=== PATIENT | male | born 1970 | race Caucasian/White ===

== ENCOUNTER 2021-06-24 20:50 | Observation (INO) | payer OTHER ==
[~2021-06-24] VITALS: Ht 175.3 cm; Wt 83.9 kg
[2021-06-24 20:58] VITALS: BP 109/82
[2021-06-24 21:35] LABS: ABSOLUTE NEUTROPHILS 6.1 thou/uL (1.4-8.2); BASOPHILS 0.6 % (0.0-2.0); EOSINOPHILS 0.8 % (0.0-3.0); HEMATOCRIT 43.3 % (42.0-52.0); HEMOGLOBIN 14.9 gm/dL (14.0-18.0); LYMPHOCYTES 19.9 % (24.0-44.0); MCH 30.1 pg (26.0-34.0); MCHC 34.4 g/dL (28.0-37.0); MCV 87.4 fL (80.0-100.0); MONOCYTES 12.7 % (1.0-8.0); PLATELET COUNT 231 thou/uL (150-400); RBC 4.95 mil/uL (4.50-6.00); RDW 12.9 % (10.5-14.5); WBC 9.2 thou/uL (4.0-11.0)
[2021-06-24 21:36] LABS: URINE BILIRUBIN NEGATIVE (Negative); URINE BLOOD NEGATIVE (Negative); URINE CLARITY CLEAR; URINE COLOR YELLOW; URINE GLUCOSE-RANDOM* NEGATIVE (Negative); URINE KETONES NEGATIVE (Negative); URINE LEUKOCYTES-REFLEX NEGATIVE (Negative); URINE NITRITE-REFLEX NEGATIVE (Negative); URINE PROTEIN (DIPSTICK) NEGATIVE (Negative); URINE SPECIFIC GRAVITY 1.025 (1.005-1.035); URINE UROBILINOGEN 0.2 E.U./dl (0.2-1.0)
[2021-06-24 21:45] LABS: CALCIUM 8.7 mg/dL (8.5-10.1); CREATININE 0.8 mg/dL (0.7-1.3); POTASSIUM 3.8 mmol/L (3.5-5.1)
[2021-06-24 21:52] LABS: ALBUMIN 3.4 g/dL (3.4-5.0); TOTAL BILIRUBIN 0.6 mg/dL (0.2-1.0); TOTAL PROTEIN 7.4 g/dL (6.4-8.2)
--- NOTE | 2021-06-25 02:11 | NUR ---
PATIENT IS ADVISED TO REMAIN NPO BUT IS PROVIDED WITH ORAL CARE SUPPLIES LEFT AT BEDSIDE WITH GOOD EFFECT PAIN IS INTERMITTENT, COLICKY IN NATURE AND SEVERE AT TIMES HAS HAD NO VOMITING
--- NOTE | 2021-06-25 05:41 | NUR ---
ATTEMPT TO CALL REPORT WILL ACCEPT PATIENT AT CHANGE OF SHIFT
[2021-06-25 07:38] VITALS: BP 119/69
[2021-06-25 07:52] VITALS: BP 114/72
[2021-06-25 12:00] VITALS: BP 115/66
[2021-06-25 16:16] VITALS: BP 108/67
[2021-06-25 16:25] VITALS: BP 128/78
[2021-06-25 20:22] VITALS: BP 114/83
[2021-06-26 05:16] VITALS: BP 113/79
--- NOTE | 2021-06-26 06:49 | NUR ---
A&OX4. UP AD ROGELIO. VS STABLE. RA. NO VOIDING ISSUES NOTED. PAIN TREATED PER PHYSICIAN PRN PAIN MED ORDER. NO OTHER ISSUES NOTED. WILL CONTINUE TO MONITOR.
[2021-06-26 08:15] VITALS: BP 131/87
--- NOTE | 2021-06-26 09:30 | NUR ---
CALLED DOCTOR MANLEY ABOUT PATIENT WANTING TO GO HOME. HE SAID HE WOULD BE TO THE FLOOR IN A WHILE AND HE IS NOT GOING TO LET HIM GO UNTIL AFTER HE SEE HIM AND SEE HOW HE IS DOING. TOLD HIM PATIENT WANTED TO LEAVE AMA THEN AND WANT ABX AND DOCTOR SAID HE WAS NOT GOING TO GIVE ABX IF HE LEAVES AMA NO ABX WILL BE GIVEN. DOCTOR MANLEY JUST CALLED BACK AND HE SAID THAT A DOCTOR JUST SAW HIM AND CHANGED DIET IF HE TOLERATED THAT HE WOULD SEE ABOUT GOING HOME WHEN HE GET TO FLOOR.
--- NOTE | 2021-06-26 10:10 | NUR ---
PATIENT REFUSED TO KEEP IV FLUID RUNNING AND DID NOT WANT ANY MORE PAIN MEDICAITONS.
--- NOTE | 2021-06-26 10:20 | NUR ---
PATIENT STATED THAT HE WAS NOT STAYING ANY LONGER AND WILL FIND ABX FROM SOMEWERE ELSE. PATIENT WAS GIVEN ADVICE ON WHY STAYING WOULD BE BEST BUT DID NOT WANT TO STAY. IV FROM RIGHT FORARM WAS REMOVED, AND HE WAS WALKED DOWN TO THE ER ENTRANCE.
[2021-06-26] MEDS ORDERED: METRONIDAZOLE500 M4 PO (12:15)
[2021-06-26] MEDS ORDERED: CIPRO500 M1 PO (12:15)
== END 2021-06-26 10:23 | disposition home or self-care (01) ==
LOC: ER 20:50 → EROBS 23:46 → 4S 06-25 07:41
PROVIDERS: Emergency Medicine; ADMIT Internal Medicine; ATTEND Internal Medicine
DX: K57.92 Diverticulitis of intestine, part unspecified, without perforation or abscess without bleeding (principal); Z20.822 Contact with and (suspected) exposure to COVID-19; R11.2 Nausea with vomiting, unspecified